=== PATIENT | male | born 1960 | race Caucasian/White ===

== ENCOUNTER 2020-07-21 19:42 | Emergency (ER) | payer SELFPAY ==
[~2020-07-21] VITALS: Ht 170.2 cm; Wt 77.0 kg
[2020-07-21 20:08] VITALS: BP 116/66
== END 2020-07-21 23:24 | disposition home or self-care (01) ==
LOC: ER 19:42
DX: F10.129 Alcohol abuse with intoxication, unspecified (principal); Y90.0 Blood alcohol level of less than 20 mg/100 ml; E11.9 Type 2 diabetes mellitus without complications
CPT/HCPCS: 93005; 99283